=== PATIENT | male | born 1950 | race Caucasian/White ===

== ENCOUNTER → 2017-11-11 | Outpatient (CLI) | payer MEDICARE ==
--- NOTE | 2017-11-11 14:08 | Diagnostic Imaging Report ---
INDICATION: 50-pack year history, current smoking, presents for low-dose CT screening. FINDINGS: There is some very mild subsegmental intra-basilar partial atelectasis. There are no findings of pneumonia. There are some emphysematous changes in the pulmonary apices where there is mild scarring and heterogeneous air trapping bilaterally. No suspicious pulmonary nodule or dominant soft tissue density lung mass. No evidence for lymphadenopathy, effusion, or pneumothorax. No findings suggestive of adenopathy. No acute osseous pathology. IMPRESSION: Changes of COPD and minimal zones of atelectasis. No dominant or suspicious mass. 1A - Negative. No lung nodules. Continue annual screening with LDCT in 12 months. Annual low-dose CT screening follow-up recommended. Dictated by: Dictated on workstation # [id number]
== END ==
LOC: RAD 10:37
PROVIDERS: ATTEND Nurse Practitioner Family
DX: J44.9 Chronic obstructive pulmonary disease, unspecified (principal); F17.210 Nicotine dependence, cigarettes, uncomplicated

== ENCOUNTER → 2018-11-14 | Outpatient (CLI) | payer MEDICARE ==
--- NOTE | 2018-11-14 12:44 | Diagnostic Imaging Report ---
TIME OF EXAM: 11/14/2018 10:02 AM INDICATION: Lung cancer screening. SCREENING Z87.891 COMPARISON: CT chest on 11/11/2017 TECHNIQUE: Low Dose CT helical images obtained through the chest. CTDI vol: 78 mGy FINDINGS: Nodules: -- A) 6 mm, indeterminate noncalcified right upper lobe nodule (image 54 series 2) -- B) 6 mm, indeterminate noncalcified right upper lobe nodule (image 82 series 2) -- C) 5 mm, indeterminate noncalcified left upper lobe nodule (image 68 series 2) Lungs: Lung volumes are normal. Centrilobular emphysema is seen throughout the lungs, greatest in the apices. No evidence of pulmonary fibrosis. There is no appreciable bronchiectasis. No pulmonary mass or consolidation is present. Mild atelectasis is seen in the lung bases. Bronchial wall thickening is seen throughout the lungs. No central endoluminal airway lesion is seen. Heart and Mediastinum: Heart size is within normal limits. There is calcified aortic and coronary atherosclerotic plaque. No pericardial effusion is present. No axillary, supraclavicular, mediastinal, internal mammary, or hilar adenopathy is present by CT size criteria. Pleura: Normal pleural spaces. No effusion or pneumothorax. No pleural nodularity or mass. Abdomen: Included views of the upper abdomen demonstrate no acute abnormality. Bones and soft tissues: Regional skeletal and soft tissue structures are age-appropriate. IMPRESSION: 1. Stable noncalcified nodules, the largest measuring 6 mm. Recommend continued followup annual low-dose chest CT. 2. No thoracic lymphadenopathy. Result code: Category 2: Benign Appearance or Behavior Follow up: Continue annual screening with LDCT in 12 months Dictated by: Dictated on workstation # [id number]
== END ==
LOC: RAD 08:38
PROVIDERS: ATTEND Nurse Practitioner Family
DX: Z12.2 Encounter for screening for malignant neoplasm of respiratory organs (principal); R91.8 Other nonspecific abnormal finding of lung field; F17.210 Nicotine dependence, cigarettes, uncomplicated

== ENCOUNTER → 2019-07-04 | Outpatient (CLI) | payer MEDICARE ==
--- NOTE | 2019-07-04 12:54 | Diagnostic Imaging Report ---
PROCEDURE: US Aorta Doppler. TECHNIQUE: Multiple real time grayscale images were obtained over the abdominal aorta in various projections. INDICATION: Tobacco abuse, screening for aneurysm. COMPARISON: None available. FINDINGS: The proximal abdominal aorta measures 1.9 x 1.6 cm. The mid abdominal aorta measures 1.7 x 1.9 cm. The distal abdominal aorta measures 1.6 x 1.2 cm. The bilateral iliac arteries are not visualized. IMPRESSION: No aneurysmal dilatation of the abdominal aorta. Dictated by: Dictated on workstation # [id number]
== END ==
LOC: RT 06-28 09:07 → RAD 08:20
PROVIDERS: ATTEND Nurse Practitioner Family
DX: Z13.6 Encounter for screening for cardiovascular disorders (principal); Z72.0 Tobacco use
CPT/HCPCS: 93978